=== PATIENT | female | born 1960 | race Asian ===

== ENCOUNTER 2023-09-23 07:25 | Day surgery (SDC) | payer OTHER ==
[~2023-09-23] VITALS: Ht 165.1 cm; Wt 77.1 kg
[2023-09-23] MEDS ORDERED: MEPERIDINE 100 MG INJ. 100 MG/ML VIAL ONE (07:56)
[2023-09-23] MEDS ORDERED: SIMETHICONE 40 MG/0.6 ML ML ONE (07:56)
[2023-09-23] MEDS ORDERED: MIDAZOLAM HCL 5 MG/5 ML VIAL ONE (07:57)
[2023-09-23 15:22] VITALS: BP_SYST 146; PULSE 78; RESP 16; TEMP 97.4; O2SAT 96
== END 2023-09-23 10:56 | disposition home or self-care (01) ==
LOC: SDS 07:25 → SMU 07:27 → SDS 10:56
PROVIDERS: ATTEND Student in an Organized Health Care Education/Training Program
DX: Z12.11 Encounter for screening for malignant neoplasm of colon (principal); D12.0 Benign neoplasm of cecum; D12.3 Benign neoplasm of transverse colon; K64.8 Other hemorrhoids; Z79.899 Other long term (current) drug therapy
CPT/HCPCS: 45385; 45380; 88305; 99153; 99152; G0378; J2250; J2175